=== PATIENT | female | born 1935 | race Caucasian/White ===

== ENCOUNTER 2016-08-20 09:46 | Emergency (ER) | payer MEDICAID ==
[~2016-08-20] VITALS: Ht 160 cm; Wt 81.5 kg
[2016-08-20] MEDS ORDERED: LISI-622 PO (10:07)
[2016-08-20] MEDS ORDERED: ASPI81TA2 PO (10:07)
[2016-08-20] MEDS ORDERED: CLOP75TA PO (10:07)
[2016-08-20] MEDS ORDERED: OMEG300C3 PO (10:07)
[2016-08-20] MEDS ORDERED: SITA25 PO (10:07)
[2016-08-20] MEDS ORDERED: METF500T4 PO (10:07)
[2016-08-20] MEDS ORDERED: ATOR10TA84 PO (10:07)
[2016-08-20] MEDS ORDERED: INSLAN SQ (10:07)
[2016-08-20] MEDS ORDERED: FOLI1TAB15 PO (10:07)
[2016-08-20] MEDS ORDERED: SODIUM CHLORIDE 0.9% 1,000 ML IV ONE (10:28)
[2016-08-20] MEDS ORDERED: ONDANSETRON HCL 4 MG TABLET PO ONE (12:15)
[2016-08-20] MEDS ORDERED: OxyCODONE HCL/ACETAMINOPHEN 5-325 MG TABLET PO ONE (12:15)
[2016-08-20 13:03] LABS: CREATINE KINASE, TOTAL 33 U/L (26-192)
[2016-08-20 15:08] VITALS: BP 153/75
== END 2016-08-20 15:50 | disposition home or self-care (01) ==
LOC: EMS 09:48
DX: I77.1 Stricture of artery (principal); M51.9 Unspecified thoracic, thoracolumbar and lumbosacral intervertebral disc disorder; E11.9 Type 2 diabetes mellitus without complications; I11.9 Hypertensive heart disease without heart failure; I25.10 Atherosclerotic heart disease of native coronary artery without angina pectoris; Z79.82 Long term (current) use of aspirin
CPT/HCPCS: 36415; 72100; 82550; 93925; 99285; J7030; Q0162